=== PATIENT | male | born 1990 | race Caucasian/White ===

== ENCOUNTER 2018-01-28 20:26 | Emergency (ER) | payer SELFPAY ==
[~2018-01-28] VITALS: Ht 170.2 cm; Wt 71.0 kg
[2018-01-28] MEDS ORDERED: MORPHINE SULFATE 10 MG/ML CPJ IM ONE (21:00)
[2018-01-28 23:19] VITALS: BP 129/82
== END 2018-01-28 23:22 | disposition home or self-care (01) ==
LOC: ER 20:26
DX: S82.491A Other fracture of shaft of right fibula, initial encounter for closed fracture (principal); W05.1XXA Fall from non-moving nonmotorized scooter, initial encounter; Y93.89 Activity, other specified; Y92.89 Other specified places as the place of occurrence of the external cause; Y99.8 Other external cause status
CPT/HCPCS: 29515; 73610; 96372; 99284; J2270; Z7610